=== PATIENT | female | born 1985 | race Asian ===

== ENCOUNTER 2017-06-21 14:10 | Emergency (ER) | payer OTHER ==
[2017-06-21] MEDS ORDERED: Aspirin 81 MG Tab.Chew PO ONE (14:39)
[2017-06-21] MEDS ORDERED: Aspirin 81 MG Tab.Chew ONE (17:45)
--- NOTE | 2017-06-22 09:18 | CR ---
INDICATION: Palpitation, tightness in chest. CHEST: A single portable AP upright view of the chest was obtained 06/21/2017. No comparisons were available. Overlying EKG leads are noted. The heart appeared normal in size. Mediastinum and bony thorax were unremarkable. An active infiltrate or effusion was not identified. IMPRESSION: No active disease. MTDD
--- NOTE | 2017-06-22 10:27 | ER ---
DATE SEEN: 06/21/2017 TIME SEEN: The patient was seen 1420 hours. CHIEF COMPLAINT: Six months palpitations, more recent increased. She has had 10-20 palpitations which last 1 to 2 seconds and "occurs a lot". She notes there is mild tightness from this. Otherwise, she denies chest pain. She is not taking control pills. She is not on hormones. She is 1, para 1, status post tubal. Mother and father had heart disease. The patient has not had a recent fever or chills. She has had a cough. She described the cough as causing some tightness in her chest and slight heaviness. She had diarrhea 5 times in the past day and she denies dyspnea on exertion. 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 She is not a smoker. Rarely drinks alcohol and has one child. PHYSICAL EXAMINATION: VITAL SIGNS: Blood pressure on arrival at 1410 was 142/101, then 5 minutes later 143/91 and later at 1545 hours 113/64, heart rate 65, respirations 20-25 and before discharge is 16. GENERAL: Alert woman, who is very attentive, very conversive, and very appropriate. HEENT: PERRLA intact. Pharynx without abnormality. NECK: No thyromegaly or masses in the neck. No cervical adenopathy. LUNGS: Clear without rales, rhonchi, or wheezes. HEART: S1, S2. No irregular rate and rhythm. No S3, no S4. No tachycardia. Heart rate 61, respirations 18. ABDOMEN: Soft. No guarding. No abdominal discomfort. EXTREMITIES: Without edema. Deep tendon reflexes in upper and lower extremities are symmetrical, 1+, normoactive. NEUROLOGICAL: Cranial nerves 2 through 12 intact. Oriented x3. No past pointing. No dysmetria. DIAGNOSTIC STUDIES: EKG sinus rhythm, normal EKG, short MO interval, 101 milliseconds. CBC normal. White count 7000, PMNs 72, lymphocytes 18, monos 8, hemoglobin 11.8, platelets 145,000. A complete metabolic panel is normal, see lab. Troponin is less than 0.017. Urinalysis is normal. Chest x-ray is normal, without abnormality. Throughout the hospital stay, on the monitor, there was no abnormality of arrhythmia. ASSESSMENT: Indeterminate why she has these intermittent episodes of palpitation. She has a prescription given to her to take to her healthcare provider to inquire if they would be willing to check out further the palpitations. Also it may be such a thing, that if she has these symptoms it would be good to have an echo performed. She is to discuss these with her healthcare provider. No prescription given to the patient. Follow up with the doctor in a week or earlier if possible. DIAGNOSES: 1. Palpitations, etiology indeterminate. 2. Normal examination. 3. Normal lab results. No evidence for troponin abnormality. No restrictions on activity. Follow up with the doctor next week. /[id number]/ISHA
== END 2017-06-21 17:25 | disposition home or self-care (01) ==
LOC: FB.ED 14:10
DX: R00.2 Palpitations (principal)
CPT/HCPCS: 36415; 71045; 80053; 81001; 84484; 85025; 85379; 93005; 99285; A9270